=== PATIENT | female | born 1965 | race African-American/Black ===

== ENCOUNTER 2016-09-28 06:21 | Emergency (ER) | payer MEDICAID ==
[~2016-09-28] VITALS: Ht 162.6 cm; Wt 68.0 kg
[2016-09-28] MEDS ORDERED: UNOBMED (06:22)
[2016-09-28 06:49] VITALS: BP 168/92
[2016-09-28 07:13] LABS: BASOPHILS % (AUTO) 2.1 % (0.0-2.0); EOSINOPHILS % (AUTO) 1.2 % (0.0-3.0); LYMPHOCYTES % (AUTO) 29.8 % (20.0-45.0); MEAN CORPUSCULAR HEMOGLOBIN 26.5 PG (27.0-31.0); MEAN CORPUSCULAR HGB CONC 30.2 G/DL (32.0-36.0); MEAN CORPUSCULAR VOLUME 88 FL (80-99); MONOCYTES % (AUTO) 8.8 % (1.0-10.0); NEUTROPHILS % (AUTO) 58.1 % (45.0-75.0); PLATELET COUNT 320 K/UL (150-450); RED BLOOD COUNT 3.55 M/UL (4.20-5.40); RED CELL DISTRIBUTION WIDTH 20.2 % (11.6-14.8); WHITE BLOOD COUNT 6.4 K/UL (4.8-10.8)
[2016-09-28 07:15] LABS: TROPONIN I < 0.30 ng/mL (<=0.30)
[2016-09-28 07:16] LABS: ALANINE AMINOTRANSFERASE 41 U/L (3-33); ALBUMIN/GLOBULIN RATIO 1.2 (1.0-2.7); ANION GAP 19 (5-15); ASPARTATE AMINO TRANSFERASE 81 U/L (5-40); CALCIUM 8.9 mg/dL (8.6-10.2); CARBON DIOXIDE 25 mEQ/L (20-30); CHLORIDE 96 mEQ/L (98-107); CREATININE 0.8 mg/dL (0.5-0.9); GLOMERULAR FILTRATION RATE > 60 mL/min (>60); HEMOLYSIS 14; SODIUM 140 mEQ/L (135-145)
[2016-09-28 07:21] VITALS: BP 164/90
[2016-09-28 07:26] LABS: CKMB 2.1 ng/mL (< 3.8)
--- NOTE | 2016-09-28 08:01 | Emergency Room Report ---
History of Present Illness General Chief Complaint: Chest Pain Source: Patient Present Illness HPI This patient states that she was discharged from a hospital in [place] that 2 weeks ago. She states that she was admitted for pelvic inflammatory disease and had to get IV antibiotics. She states that she believes she is the infection from her [place] boyfriend. She states she thought that he had been treated for STDs in the hospital, however, it sounds like he had an appendectomy. She has had sexual relations with him since that time with the assumption that he been treated. She is concerned she may have a return of the infection. She has had some pelvic pain. She states that the pain comes and goes but is very sharp. She states she's also felt like her equilibrium is off. She states that yesterday morning she went to step up onto a curb and numbness to the curb and fell and hit her face. She states that at that time she thought she was okay but has pain in her face and has a headache. She states that she also has chest pain since the fall. She denies shortness of breath. She denies fever or chills. She denies neck pain. She has no other complaints. Allergies: Coded Allergies: No Known Allergies (Unverified , 09/28/16) Patient History Past Medical History: see triage record, HTN, other - PID, HLP Social History: Denies: alcohol use, drug use, smoking Last Menstrual Period: unk Reviewed Nursing Documentation: PMH: Agreed, PSxH: Agreed Nursing Documentation-PMH Past Medical History: No History, Except For Hx Hypertension: Yes Review of Systems All Other Systems: negative except mentioned in HPI Physical Exam Vital Signs Date Time Temp Pulse Resp B/P Pulse Ox O2 Delivery O2 Flow Rate FiO2 09/28/16 06:19 80 18 161/112 97 Room Air 09/28/16 06:49 98.9 Sp02 EP Interpretation: reviewed, normal General Appearance: no apparent distress, alert, GCS 15, non-toxic Head: normocephalic, other - Abrasions to nose, both lips with swelling/ ecchmosis both lips. TTP over teeth 8,9. Eyes: bilateral eye PERRL, bilateral eye normal inspection ENT: hearing grossly normal, normal pharynx, no angioedema, normal voice Neck: full range of motion, supple/symm/no masses Respiratory: chest non-tender, lungs clear, normal breath sounds, speaking full sentences Cardiovascular #1: regular rate, rhythm, no edema Gastrointestinal: normal bowel sounds, non tender, soft, non-distended, no guarding, no rebound Rectal: deferred Musculoskeletal: back normal, gait/station normal, normal range of motion, non- tender Neurologic: alert, oriented x3, responsive, motor strength/tone normal, sensory intact, speech normal Psychiatric: judgement/insight normal, memory normal, mood/affect normal, no suicidal/homicidal ideation Skin: normal color, no rash, warm/dry, well hydrated Medical Decision Making Diagnostic Impression: Primary Impression: Facial abrasion Additional Impressions: Facial contusion Chest pain Fall Traumatic displacement of teeth ER Course This patient presented with several complaints. She suffered what appears to be a mechanical fall yesterday. She states that her equilibrium has not been as good since being treated with antibiotics for PID. Patient also has had intercourse with the same sexual partner and although it sounds that this patient had an appendectomy, it is unclear whether he was treated for STDs. She 's also had some ongoing pelvic pain despite finishing treatment. Patient had evidence of significant facial and head trauma, so I did obtain a CT head and CT maxillofacial bones which shows no acute intracranial process. It does show some dislodgment of the roots of teeth 8 and 9. I educated the patient that she should see a dentist/oral surgeon for further treatment of this. CT abdomen and pelvis showed no acute findings. I also obtained the CT of the abdomen and pelvis given a history of PID and ongoing pelvic pain for concern this patient could have a tubo-ovarian abscess or intra-abdominal abscess related to the PID. I also presumptively gave antibiotics given the patient has had ongoing sexual relations with the same person that she developed PID previously with there is some confusion about whether he was treated. I did educate the patient extensively that she should not sexual contact with this person intelligent is determined that he has been treated and is clear. She indicated understanding. The patient's chest pain appears to be chest wall pain. The pain has been ongoing since she fell yesterday. There is no evidence of displaced rib fracture or pneumothorax. I have low suspicion for acute coronary syndrome and the patient has a negative initial workup which is reassuring given the length of time of the symptoms. Patient given return precautions and followup instructions. Labs Test 09/28/16 06:18 09/28/16 06:41 Urine Color Pale yellow Urine Appearance Clear Urine pH 5 (4.5-8.0) Urine Specific [place] 1.020 (1.005-1.035) Urine Protein 2+ (NEGATIVE) Urine Glucose (UA) Negative (NEGATIVE) Urine Ketones Negative (NEGATIVE) Urine Occult Blood 2+ (NEGATIVE) Urine Nitrite Negative (NEGATIVE) Urine Bilirubin Negative (NEGATIVE) Urine Urobilinogen Normal MG/DL (0.0-1.0) Urine Leukocyte Esterase 1+ (NEGATIVE) Urine RBC 2-4 /HPF (0 - 2) Urine WBC 2-4 /HPF (0 - 2) Urine Squamous Epithelial Cells Few /LPF (NONE/OCC) Urine Bacteria Few /HPF (NONE) Urine Granular Casts 2-4 /LPF (NONE) Urine Opiates Screen Negative (NEGATIVE) Urine Barbiturates Screen Negative (NEGATIVE) Phencyclidine (PCP) Screen Negative (NEGATIVE) Urine Amphetamines Screen Positive (NEGATIVE) Urine Benzodiazepines Screen Negative (NEGATIVE) Urine Cocaine Screen Negative (NEGATIVE) Urine Marijuana (THC) Screen Negative (NEGATIVE) White Blood Count 6.4 K/UL (4.8-10.8) Red Blood Count 3.55 M/UL (4.20-5.40) Hemoglobin 9.4 G/DL (12.0-16.0) Hematocrit 31.2 % (37.0-47.0) Mean Corpuscular Volume 88 FL (80-99) Mean Corpuscular Hemoglobin 26.5 PG (27.0-31.0) Mean Corpuscular Hemoglobin Concent 30.2 G/DL (32.0-36.0) Red Cell Distribution Width 20.2 % (11.6-14.8) Platelet Count 320 K/UL (150-450) Mean Platelet Volume 6.0 FL (6.5-10.1) Neutrophils (%) (Auto) 58.1 % (45.0-75.0) Lymphocytes (%) (Auto) 29.8 % (20.0-45.0) Monocytes (%) (Auto) 8.8 % (1.0-10.0) Eosinophils (%) (Auto) 1.2 % (0.0-3.0) Basophils (%) (Auto) 2.1 % (0.0-2.0) Sodium Level 140 mEQ/L (135-145) Potassium Level 4.0 mEQ/L (3.4-4.9) Chloride Level 96 mEQ/L (98-107) Carbon Dioxide Level 25 mEQ/L (20-30) Anion Gap 19 (5-15) Blood Urea Nitrogen 11 mg/dL (7-23) Creatinine 0.8 mg/dL (0.5-0.9) Estimat Glomerular Filtration Rate > 60 mL/min (>60) Glucose Level 89 mg/dL (74-106) Calcium Level 8.9 mg/dL (8.6-10.2) Total Bilirubin 0.4 mg/dL (0.0-1.2) Aspartate Amino Transf (AST/SGOT) 81 U/L (5-40) Alanine Aminotransferase (ALT/SGPT) 41 U/L (3-33) Alkaline Phosphatase 125 U/L (35-104) Total Creatine Kinase 183 U/L (26-140) Creatine Kinase MB 2.1 ng/mL (< 3.8) Creatine Kinase MB Relative Index 1.1 Troponin I < 0.30 ng/mL (<=0.30) Total Protein 8.0 g/dL (6.6-8.7) Albumin 4.4 g/dL (3.5-5.2) Globulin 3.6 g/dL Albumin/Globulin Ratio 1.2 (1.0-2.7) EKG Diagnostic Results Rate: normal Rhythm: NSR ST Segments: no acute changes Rhythm Strip Diag. Results EP Interpretation: yes Rate: 90's Rhythm: NSR, no PVC's, no ectopy Chest X-Ray Diagnostic Results EP Interpretation: Yes Findings: no consolidation, no effusion, no pneumothorax, no acute cardiopulmonary disease Number of Views: 1 CT/MRI/US Diagnostic Results CT/MRI/US Diagnostic Results : Imaging Test Ordered: CT head, max/fac, abd/pelvis Impression See official report. CT head: No acute findings. CT maxillofacial bones: Anterior displacement of the roots of the central maxillary incisors. CT abdomen and pelvis: See official report. No acute findings. Last Vital Signs Date Time Temp Pulse Resp B/P Pulse Ox O2 Delivery O2 Flow Rate FiO2 09/28/16 07:21 98.9 74 14 164/90 100 Room Air Status: improved Disposition: HOME, SELF-CARE Condition: Improved Referrals: NON PHYSICIAN (PCP) Additional Instructions: Please see a dentist or oral surgeon for further evaluation and treatment of your displaced teeth. YONY COPE D.O. Sep 28, 2016 08:01
[2016-09-28 08:21] VITALS: BP 141/92
[2016-09-28 08:34] LABS: APPEARANCE,URINE CLEAR; KETONES,URINE NEGATIVE (NEGATIVE); LEUKOCYTE ESTERASE ,URINE 1+ (NEGATIVE); NITRITE,URINE NEGATIVE (NEGATIVE); PH,URINE 5 (4.5-8.0); PROTEIN,URINE 2+ (NEGATIVE); UROBILINOGEN,URINE NORMAL MG/DL (0.0-1.0)
--- NOTE | 2016-09-28 08:53 | Diagnostic Imaging Report ---
Clinical Indication: Abdominal pain, status post fall Technique: No oral contrast utilized, per emergency room physician request IV administration nonionic contrast. Venous phase spiral acquisition obtained through the abdomen and pelvis. Multiplanar reconstructions were generated. Total dose length product 909 mGycm. CTDIvol(s) 17 mGy Comparison: None Findings: The bones are unremarkable. No significant abnormalities the subcutaneous fat demonstrated. The included lung bases are clear except for some posterior dependent atelectatic changes. The heart is enlarged. The liver demonstrates diffuse low attenuation. It is otherwise intact. No focal abnormalities. Gallbladder, bile ducts, pancreas, spleen, adrenals, kidneys are all unremarkable. The uterus demonstrates a fibroid with rim calcification. No adnexal mass. No evidence of diverticulosis or diverticulitis. No small bowel distention. No free or loculated intraperitoneal air or fluid is demonstrated. The distal esophagus, stomach, duodenum are unremarkable. There is a tiny fat-containing umbilical hernia There is an inferior vena cava filter in place. The inferior vena cava is patent. Impression: No evidence of acute solid organ injury or osseous trauma. Fatty liver Inferior vena cava filter in place Calcified degenerated uterine fibroid Megaly Incidental finding small fat-containing umbilical hernia The CT scanner at [facility] is accredited by the [employer] and the scans are performed using protocols designed to limit radiation exposure to as low as reasonably achievable to attain images of sufficient resolution adequate for diagnostic evaluation.
--- NOTE | 2016-09-28 09:05 | Diagnostic Imaging Report ---
Indication: TRAUMA, mechanical fall Technique: Continuous helical CT scanning of the head was performed without intravenous contrast material. Axial and coronal 5 mm sections were generated. Radiation dose was minimized using automated exposure control Dose: Total Dose Length Product - DLP [address] Dose Index - CTDIvol(s) 70.38 mGy. Comparison: None Findings: The ventricular system is normal in size and configuration. There is no shift of midline structures. No abnormal extra-axial fluid collections are noted. There is no evidence of intracerebral bleeding. No other abnormal high or low density areas are noted within the brain. Visualized orbits and sinuses are unremarkable. Intact calvarium. No significant extracranial soft tissue swelling. Impression: Normal CT scan of the head without contrast material. The CT scanner at [facility] is accredited by the [employer] and the scans are performed using protocols designed to limit radiation exposure to as low as reasonably achievable to attain images of sufficient resolution adequate for diagnostic evaluation.
[2016-09-28] MEDS ORDERED: Azithromycin 250mg tab ORAL ONE (09:15)
[2016-09-28 09:18] VITALS: BP 156/88
[2016-09-28 09:22] LABS: BACTERIA,URINE FEW /HPF; SQUAMOUS EPITHELIAL CELL,UR FEW /LPF (NONE/OCC)
[2016-09-28] MEDS ORDERED: Lidocaine 1% MPF 10mg/ml 5ml ONE (09:28)
[2016-09-28] MEDS ORDERED: IBUPROFEN600 MG ORAL (09:40)
--- NOTE | 2016-09-28 09:50 | Diagnostic Imaging Report ---
Indications: TRAUMA Technique: Spiral images obtained through the facial bones. No IV contrast utilized. Multiplanar reconstructions were generated.Total dose length product 591 mGycm. CTDIvol(s) 20mGy Comparison: None Findings: The roots of the central maxillary incisors, particularly that on the left, or displaced anteriorly, with the root of the left upper in particular now completely anterior to the alveolar ridge of bone. The remaining dentition is intact other than multiple prior 2 contractions. The mandible itself is intact. The nasal bone, nasal septum, nasal process of the maxilla, orbital and maxillary garcia are intact. No worrisome sinus opacification. The optic globes and retroseptal orbits are intact. No significant facial soft tissue swelling. There is a small torus palatinus. Impression: Anterior displacement of the roots of the central maxillary incisors, suspect on the basis of recent trauma given stated clinical history. Correlate with clinical findings. No acute bony trauma The CT scanner at [facility] is accredited by the [employer] and the scans are performed using protocols designed to limit radiation exposure to as low as reasonably achievable to attain images of sufficient resolution adequate for diagnostic evaluation.
[2016-09-28 09:56] VITALS: BP 171/96
[2016-09-28 09:57] VITALS: BP 171/96
--- NOTE | 2016-09-28 11:54 | Diagnostic Imaging Report ---
Indication: Chest pain Technique: One view of the chest Comparison: none Findings: The heart is enlarged. Lungs and pleural spaces are clear. Impression: Cardiomegaly No acute process
--- NOTE | 2016-09-30 14:05 | Cardiology Report ---
APPROVED REPORT EKG Measurement Heart [id number] Normal sinus rhythm Possible Left atrial enlargement Septal infarct, age undetermined Abnormal ECG
== END 2016-09-28 10:20 | disposition home or self-care (01) ==
LOC: EDBD 06:21 → EMR 06:57
DX: R07.9 Chest pain, unspecified (principal); S00.83XA Contusion of other part of head, initial encounter; S00.31XA Abrasion of nose, initial encounter; M26.30 Unspecified anomaly of tooth position of fully erupted tooth or teeth; R10.2 Pelvic and perineal pain; I10 Essential (primary) hypertension; W01.0XXA Fall on same level from slipping, tripping and stumbling without subsequent striking against object, initial encounter; Y92.480 Sidewalk as the place of occurrence of the external cause; Y99.8 Other external cause status
CPT/HCPCS: 36415; 70450; 70486; 71010; 74177; 80053; 80300; 81003; 82550; 82553; 84484; 85025; 93005; 96372; 99284; J0696; Q0144; Q9967